=== PATIENT | male | born 1960 | race Caucasian/White ===

== ENCOUNTER → 2016-08-16 | Outpatient (CLI) | payer BC ==
[~2016-08-16] MED LIST: ASPI-134 PO; BUSP10TA95 PO; BUSP5POW MC; CETI-262 PO; Digoxin PO; SMV20T PO; TRIA16.5 NS
[2016-08-16 07:51] LABS: BASOPHILS % (AUTO) 1 % (0-2); EOSINOPHILS # (AUTO) 0.2 10^3uL; EOSINOPHILS % (AUTO) 5 % (0-4); LYMPHOCYTES # (AUTO) 1.5 X10^3; MEAN CORPUSCULAR HEMOGLOBIN 29.2 PG (26.0-34.0); MEAN CORPUSCULAR HGB CONC 34.8 g/dL (31.0-37.0); MEAN CORPUSCULAR VOLUME 84 FL (80-100); MEAN PLATELET VOLUME 10.2 FL (6.0-9.5); MONOCYTES # (AUTO) 0.3 X10^3; MONOCYTES % (AUTO) 10 % (3-11); NEUTROPHILS # (AUTO) 1.4 X10^3; NEUTROPHILS % (AUTO) 41 % (51-67); PLATELET COUNT 224 10^3uL (150-450); WHITE BLOOD COUNT 3.38 10^3uL (4.0-11.0)
[2016-08-16 08:16] LABS: ALBUMIN 4.5 g/dL (3.4-5.0); ANION GAP 13.1 MEQ/L (3-15); TOTAL PROTEIN 7.5 g/dL (6.4-8.5)
== END ==
LOC: LAB 07:21
PROVIDERS: ATTEND Internal Medicine
DX: Z00.00 Encounter for general adult medical examination without abnormal findings (principal); I48.91 Unspecified atrial fibrillation; E03.8 Other specified hypothyroidism; E78.4 Other hyperlipidemia; Z12.5 Encounter for screening for malignant neoplasm of prostate
CPT/HCPCS: 36415; 80053; 80061; 84153; 84443; 85025

== ENCOUNTER → 2016-08-21 | Outpatient (CLI) | payer BC ==
[2016-08-23 20:08] LABS: HEPATITIS A ANTIBODY IGM Negative; HEPATITIS B CORE ABY IGM Negative; HEPATITIS B SURFACE ANTIGEN C Negative
== END ==
LOC: LAB 07:30
PROVIDERS: ATTEND Internal Medicine
DX: I48.91 Unspecified atrial fibrillation (principal)
CPT/HCPCS: 36415; 80074; 80162

== ENCOUNTER → 2016-08-23 | Outpatient (CLI) | payer BC ==
--- NOTE | 2016-08-23 14:11 | Diagnostic Imaging Report ---
INDICATION: Bilateral knee pain. No known injury. Pain has been intermittent for several months.. TECHNIQUE: Bilateral standing AP, lateral, PA, and sunrise views of the knees. CORRELATION STUDY: 01/06/2010. FINDINGS: No acute bony abnormality. There is suggestion of very mild symmetric narrowing of the medial and to a lesser degree lateral compartments. The articular surfaces are smooth. No calcified intra-articular loose bodies. There is very slight lateral subluxation of the patella bilaterally, right slightly greater than left. Mild spur formation present, superior patella, left greater than right. Soft tissues appearing relatively unremarkable. 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 Dictated by: Dictated on workstation # [id number]
== END ==
LOC: RAD 10:08
PROVIDERS: ATTEND Internal Medicine
DX: M25.561 Pain in right knee (principal); M25.562 Pain in left knee